=== PATIENT | male | born 1980 | race Two or more races ===

== ENCOUNTER 2024-09-27 10:39 | Inpatient (IN) | payer OTHER ==
[2024-09-27] VITALS (7 sets, daily range): BP systolic 162–190; BP diastolic 80–94; O2SAT 98–100
[~2024-09-27] VITALS: Ht 152.4 cm; Wt 95.3 kg
[2024-09-27] MEDS ORDERED: LISINOPRIL40 MG PO (11:49)
[2024-09-27] MEDS ORDERED: ROSUVASTATIN CA20 MG PO (11:49)
[2024-09-27] MEDS ORDERED: ENALAPRILAT DIHYDRATE 1.25 MG/ML VIAL IV STA (12:02)
[2024-09-27] MEDS ORDERED: ENALAPRILAT DIHYDRATE 1.25 MG/ML VIAL IV ONE (12:18)
[2024-09-27 12:40] LABS: BASO % 0.7 % (0.1-1.2); EOS # 0.16 (0.04-0.54); EOS % 1.8 % (0.7-7.0); HEMATOCRIT 43.5 % (40.1-51.0); HEMOGLOBIN 15.2 g/dL (13.7-17.5); LYMPH # 0.88 (1.18-3.74); MEAN CORPUSCULAR HEMOGLOBIN 29.3 pg (25.6-32.2); MONO # 0.47 (0.24-0.82); MONO % 5.3 % (4.7-12.5); NEUT # 7.24 (1.56-6.13); PLATELET COUNT 273 K/uL (163-369); RED BLOOD COUNT 5.18 M/uL (4.63-6.08); RED CELL DISTRIBUTION WIDTH 12.4 % (11.6-14.4)
[2024-09-27 13:27] LABS: PH,URINE 7.5 (5.0-8.0); URINE APPEARANCE Clear; URINE BILIRRUBIN Negative (NEGATIVE); URINE BLOOD Negative; URINE COLOR Yellow; URINE GLUCOSE Negative (NEGATIVE); URINE KETONE Negative (NEGATIVE); URINE LEUKOCYTE Negative; URINE NITRATE Negative; URINE PROTEIN Negative (NEGATIVE); URINE UROBILINOGEN 0.2 E.U./dl
[2024-09-27 13:30] LABS: URINE BACTERIA 4.8 uL (0.0-1933)
[2024-09-27 13:38] LABS: URINE EPITHELIAL CELLS 0.4 uL (0.0-38.8); URINE RBC 1.3 uL (0.0-20.8); URINE WBC 0 uL (0.0-23.2)
[2024-09-27 13:51] LABS: CREATININE SERUM 1.11 mg/dL (0.70-1.30); GFR 71.32; POTASSIUM 4.01 mEq/L (3.5-5.1)
[2024-09-27] MEDS ORDERED: NITROGLYCERIN IN 5 % DEXTROSE 50 MG/250 ML BOTTLE IV ONE (13:54)
[2024-09-27] MEDS ORDERED: NITROGLYCERIN 250 ML IV SCH (14:00)
[2024-09-27] MEDS ORDERED: NITROGLYCERIN IN 5 % DEXTROSE 250 ML IV SCH ×2 (14:45→17:45)
[2024-09-27] MEDS ORDERED: ATORVASTATIN CALCIUM 40 MG TABLET PO SCH (17:43)
[2024-09-27] MEDS ORDERED: ENOXAPARIN SODIUM 80 MG/0.8 ML SYRINGE SUBCUTANEO SCH (17:44)
[2024-09-27] MEDS ORDERED: hydrALAZINE HCL 20 MG VIAL IV ONE (17:45)
[2024-09-27] MEDS ORDERED: ASPIRIN 325 MG TABLET PO ONE (17:45)
[2024-09-27] MEDS ORDERED: ACETAMINOPHEN 500 MG GEL..CAP PO PRN (17:45)
[2024-09-27] MEDS ORDERED: FAMOTIDINE/PF 20 MG in 0.9 % SODIUM CHLORIDE 8 ML IV PUSH SCH (17:45)
[2024-09-27] MEDS ORDERED: TICAGRELOR 90 MG TABLET PO ONE (17:45)
[2024-09-27] MEDS ORDERED: 0.9 % SODIUM CHLORIDE 1,000 ML IV SCH (18:00)
[2024-09-27] MEDS ORDERED: ASPIRIN 325 MG TABLET.EC PO ONE (18:16)
[2024-09-27] MEDS ORDERED: hydrALAZINE HCL 20 MG VIAL ONE (18:16)
[2024-09-27] MEDS ORDERED: ENOXAPARIN SODIUM 80 MG/0.8 ML SYRINGE SUBCUTANEO ONE (18:17)
[2024-09-27] MEDS ORDERED: FAMOTIDINE/PF 20 MG/2 ML VIAL ONE (18:17)
[2024-09-27 18:37] LABS: INR 1.05; PARTIAL THROMBOPLASTIN TIME 29.3 SECONDS (22.0-34.0); PROTHROMBIN TIME 11.4 SECONDS (9.0-11.5)
[2024-09-27] MEDS ORDERED: hydrALAZINE HCL 20 MG VIAL IV PRN (23:00)
[2024-09-27] MEDS ORDERED: ACETAMINOPHEN 500 MG GEL..CAP PO ONE (23:01)
[2024-09-28] VITALS (13 sets, daily range): BP systolic 150–180; BP diastolic 70–95; O2SAT 94–100
[2024-09-28] MEDS ORDERED: TICAGRELOR 90 MG TABLET PO SCH (05:00)
[2024-09-28] MEDS ORDERED: TICAGRELOR 90 MG TABLET PO ONE (05:26)
[2024-09-28] MEDS ORDERED: ENOXAPARIN SODIUM 80 MG/0.8 ML SYRINGE SUBCUTANEO ONE (05:27)
[2024-09-28] MEDS ORDERED: ACETAMINOPHEN 500 MG GEL..CAP PO ONE (07:05)
[2024-09-28 07:19] LABS: CHOL HDL RATIO 2.6 (0-5.0); TSH 1.11 uIU/mL (0.358-3.74)
[2024-09-28] MEDS ORDERED: ASPIRIN 81 MG TAB.CHEW PO SCH (09:00)
[2024-09-28] MEDS ORDERED: LOSARTAN POTASSIUM 50 MG TABLET PO SCH (11:16)
[2024-09-28] MEDS ORDERED: METOPROLOL SUCCINATE 25 MG TAB.SR.24H PO SCH (11:16)
[2024-09-28] MEDS ORDERED: AMLODIPINE BESYLATE 5 MG TABLET PO SCH (12:25)
[2024-09-29 00:19] VITALS: BP 176/94; O2SAT 96
[2024-09-29] MEDS ORDERED: LOSARTAN POTASSIUM 50 MG TABLET PO SCH (09:00)
[2024-09-29] MEDS ORDERED: ENOXAPARIN SODIUM 40 MG/0.4 ML SYRINGE SUBCUTANEO SCH (09:00)
[2024-09-29] MEDS ORDERED: LOSARTAN POTASSIUM PO SCH (09:00)
[2024-09-29] MEDS ORDERED: AMLODIPINE BESYLATE 10 MG TABLET PO SCH (09:00)
[2024-09-29 10:21] VITALS: BP 180/100; O2SAT 98
[2024-09-29 13:32] VITALS: BP 160/80
[2024-09-29] MEDS ORDERED: hydrALAZINE HCL 25 MG TABLET PO SCH (15:10)
[2024-09-29] MEDS ORDERED: NIFEDIPINE 30 MG TAB.SA.OSM PO SCH (15:11)
[2024-09-29] MEDS ORDERED: BUTALB/ACETAMINOPHEN/CAFFEINE 1 TAB TABLET PO PRN (15:11)
[2024-09-29 15:55] VITALS: BP 175/94; O2SAT 97
[2024-09-29] MEDS ORDERED: ENALAPRILAT DIHYDRATE 1.25 MG/ML VIAL IV PRN (16:45)
[2024-09-30 00:31] VITALS: BP 166/84; O2SAT 97
[2024-09-30] MEDS ORDERED: LOSARTAN POTASSIUM 100 MG TABLET PO SCH (09:00)
[2024-09-30] MEDS ORDERED: FUROsemide 40 MG/4 ML VIAL IV STA (12:44)
[2024-09-30 13:06] VITALS: BP 160/88
[2024-09-30 17:09] VITALS: BP 160/80
[2024-10-01 00:08] VITALS: BP 155/80; O2SAT 99
[2024-10-01] MEDS ORDERED: hydrALAZINE HCL 25 MG TABLET PO SCH (01:00)
[2024-10-01 04:56] VITALS: BP 160/90; O2SAT 99
[2024-10-01] MEDS ORDERED: hydrALAZINE HCL 50 MG TABLET PO SCH (09:00)
[2024-10-01] MEDS ORDERED: FUROsemide 40 MG TABLET PO SCH (09:00)
[2024-10-01] MEDS ORDERED: NIFEDIPINE 60 MG TAB.SA.OSM PO SCH (09:00)
[2024-10-01] MEDS ORDERED: LOSARTAN POTAS100 MG PO (09:39)
[2024-10-01] MEDS ORDERED: LIPITOR40 M1 PO (09:39)
[2024-10-01] MEDS ORDERED: TOPROL XL25 M1 PO (09:39)
[2024-10-01] MEDS ORDERED: NIFEDIPINE ER90 M1 PO (09:40)
[2024-10-01] MEDS ORDERED: HYDRALAZINE HCL50 MG PO (09:40)
[2024-10-01 10:01] VITALS: BP 157/76; O2SAT 98
== END 2024-10-01 11:09 | disposition home or self-care (01) | DRG 281 ==
LOC: ER 10:39 → ICU-2 18:25 → MEDI 09-28 13:38
PROVIDERS: Emergency Medicine; General Practice; ADMIT Internal Medicine; ATTEND Internal Medicine
PROC: B24BYZZ Ultrasonography of Heart with Aorta using Other Contrast (ICD-10-PCS; principal; 2024-09-27)
DX: I21.4 Non-ST elevation (NSTEMI) myocardial infarction (principal); I16.9 Hypertensive crisis, unspecified